=== PATIENT | female | born 1970 | race Caucasian/White ===

== ENCOUNTER 2016-09-30 16:13 | Day surgery (SDC) | payer BC, OTHER ==
[~2016-09-30 16:13] MED LIST: RINGERS SOLUTION,LACTATED 1,000 ML IV PRN
--- OUTSIDE RECORDS SUMMARY | 2016-09-30 16:16 | XMS REPORT | Continuity of Care Document ---
:1970 Author Organization [facility] ([facility]) Address [address] [place] [address] Phone [phone] Care Team Providers Name Role Phone Winston Hernandez Primary Care Provider [phone] Source Comments This disclosure is being made pursuant to the Care Everywhere program, applicable federal and state laws, and may not contain all informaitonavailable regarding this patient.[facility] ([facility]) Active Allergies and Adverse Reactions Allergen Noted Date Severity Reactions Comments Penicillin G Urticaria (Hives) Phenobarbital Urticaria (Hives) Current Medications Prescription Sig. Disp. Refills Start Date End Date Status famotidine (PEPCID) 20 Take 1 Tab by mouth 60 Tab 6 11/23/2009 Active mg tablet 2 times daily. Indications: Prevention of Stress Ulcer benazepril (LOTENSIN) Take 20 mg by mouth Active 20 mg tablet daily. traZODone (DESYREL) 50 Take 50-100 mg by Active mg tablet mouth at bedtime. traMADol (ULTRAM) 50 mg Take 50-100 mg by Active tablet mouth every 6 hours as needed. rizatriptan (MAXALT) 10 Take 10 mg by mouth Active mg tablet once when needed. May repeat in 2 hours in needed citalopram 40 mg tablet Take 40 mg by mouth Active daily. pramipexole 1 mg tablet Take 1 mg by mouth Active daily. 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 Has not had biopsy. Arthralgia 03/24/2012 Depression 03/24/2012 Migraine 03/24/2012 Environmental allergies 03/24/2012 Asthma 03/24/2012 Restless leg syndrome 03/24/2012 Nephrotic syndrome with unspecified pathological lesion in kidney 01/01/2006 Immunizations Name Dates Previously Given Next Due Influenza, unspecified 06/04/2007,07/18/2006 Social History Tobacco Use Types Packs/Day Years Used Date Never Smoker Smokeless Tobacco: Never Used Alcohol Use Drinks/Week oz/Week Comments Yes socially (less than alcoholic 2 beverages per week) Last Filed Vital Signs Vital Sign Reading Time Taken Blood Pressure 133/76 03/24/2012 9:32 AM CDT Pulse 89 03/24/2012 9:32 AM CDT Temperature 36 C (96.8 F) 03/24/2012 9:32 AM CDT Respiratory Rate 16 12/22/2006 3:31 PM CDT Height 1.702 m (5' 7") 03/24/2012 9:32 AM CDT Weight 114.216 kg (251 lb 12.8 oz) 03/24/2012 9:32 AM CDT Body Mass Index 39.43 03/24/2012 9:32 AM CDT Oxygen Saturation - - Plan of Care Health Maintenance Due Date Last Done Comments Hepatitis B Vaccine (1 of 3 - Primary 1971 Series) Tdap Vaccine 1982 MMR Vaccine 1989 Td Vaccine 1989 Pneumococcal Vaccine (1 of 3 - PCV13) 1990 Cervical Cancer Screening 2001 Mammogram 2011 Lipid Disorder Screening 07/18/2011 07/18/2006, 03/21/2006 Influenza Vaccine: Seasonal (#1) 03/04/2016 06/04/2007, 07/18/2006 Results from Last 3 Months Not on file
[2016-09-30] MEDS ORDERED: RINGERS SOLUTION,LACTATED 1,000 ML IV ONE (17:10)
[2016-09-30] MEDS ORDERED: BUPIVACAINE HCL/EPINEPHRINE 50 ML VIAL IJ ONE ×2 (17:30)
--- NOTE | 2016-09-30 18:21 | OR ---
Operative Report - Dictated Report Narrative: OPERATIVE REPORT DATE OF OPERATION: 09/30/2016 PREOPERATIVE DIAGNOSIS: Abscess of the mid back POSTOPERATIVE DIAGNOSIS: Infected/ruptured epidermal inclusion cyst with abscess of the back OPERATION: Incision and drainage/debridement of abscess of the mid back SURGEON: Corine Maddox MD ANESTHESIA: ALPESH Laird CRNA INDICATIONS FOR PROCEDURE: The patient is a 46-year-old female who developed tenderness and swelling in the mid back on 09/25/2016. The area enlarged in size. Her was able to drain some purulent material, however the area has gotten worse. FINDINGS: Infected/ruptured epidermal inclusion cyst with abscess NARRATIVE OF PROCEDURE: The patient was identified preoperatively, and prior to the administration of anesthetic, a multidisciplinary timeout was observed. With the patient in the right lateral position and after the administration of intravenous sedation, the area around the abscess was prepped with Betadine solution and isolated with 4 sterile towels. The remainder of the patient was covered with a sterile disposable drape. The area around the abscess was infiltrated with 0.5% Marcaine with epinephrine. A cruciate skin incision was made over the most fluctuant portion of the mass. A large amount of purulent material was expressed. A culture was submitted. Epidermal inclusion cyst debris was also evident. The wound was explored. There were no loculations or extensions. The wound was then irrigated with saline until clear. Visible epidermal inclusion cyst sac was debrided back to subcutaneous tissue with scissors. The area was again irrigated until clean. No additional sac material was visible. The wound appeared hemostatic. 1/2 inch iodoform gauze packing was placed. A dressing of folded 4 x 4 and large Mepilex border was applied. The dressing was additionally reinforced with Medipore tape. The operative procedure was terminated at this point. The patient tolerated the anesthetic and procedure well without complication. There was no measurable blood loss. A culture was submitted but no tissue specimen was submitted. The patient was transferred back to the ambulatory surgery area awake and in stable condition. The patient remained stable throughout a period of postoperative observation. She denied discomfort. She was able to tolerate PO intake and was up without assistance. I shared the operative findings with her. She was discharged home with instructions to keep the current dressing dry and intact. She has a prescription for Percocet 5/325 mg #20 1-2 PO Q4-6hrs prn pain. She has an office appointment for tomorrow for wound inspection and packing change. Reviewed and electronically signed
[2016-09-30] MEDS ORDERED: oxyCODONE HCL/ACETAMINOPHEN 1 TAB TABLET PO PRN (18:38)
[2016-09-30 18:58] VITALS: BP 124/66
== END 2016-09-30 16:14 | disposition home or self-care (01) ==
LOC: AMB 16:13
PROVIDERS: ATTEND Surgery
PROC: 0J970ZZ Drainage of Back Subcutaneous Tissue and Fascia, Open Approach (ICD-10-PCS; principal; 2016-09-30 16:00)
DX: L72.0 Epidermal cyst (principal); L02.212 Cutaneous abscess of back [any part, except buttock and flank]; I10 Essential (primary) hypertension; E03.9 Hypothyroidism, unspecified; Z68.41 Body mass index [BMI] 40.0-44.9, adult

== ENCOUNTER 2020-12-03 23:56 | Observation (INO) ==
[2020-12-04] MEDS ORDERED: ONDANSETRON HCL/PF 2 MG/ML VIAL IV ONE ×2 (00:23→01:28)
[2020-12-04] MEDS ORDERED: ONDANSETRON HCL/PF 2 MG/ML VIAL ONE (00:24)
[2020-12-04] MEDS ORDERED: KETOROLAC TROMETHAMINE 30 MG/ML VIAL IV ONE ×2 (00:25→07:58)
[2020-12-04] MEDS ORDERED: ALBUTEROL SULFATE 60 PUFF INHALER IH ONE (00:27)
[2020-12-04] MEDS ORDERED: ALBUTEROL SULFATE 200 PUFF INHALER IH ONE (00:35)
[2020-12-04] MEDS ORDERED: NORMAL SALINE 1,000 ML IV ONE (00:42)
--- NOTE | 2020-12-04 00:47 | ERNOTE ---
Medical Problem HPI - Narrative Date of Service: 12/04/20 - General Chief Complaint: General Assessment Time Seen by Provider: 12/04/20 00:06 Source: patient Exam Limitations: no limitations - Immun/Allergies/Home Medications Immunizations: IMMUNIZATION HX Immunizations Up to Date Yes History of Influenza Vaccine Yes Hx Pneumococcal Vaccination No Allergies/Adverse Reactions: Allergies Penicillins Allergy (Severe, Verified 12/04/20 00:12) hives, rash phenobarbital Allergy (Severe, Verified 12/04/20 00:12) hives, rash clarithromycin [From Biaxin] Allergy (Verified 12/04/20 00:12) swelling Home Medications: HOME MEDICATIONS levonorgestrel 20 mcg/24 hours (6 yrs) 52 mg intrauterine device 1 dose INTRAUTERINE ONCE 03/24/18 [Last Taken Unknown] omeprazole 40 mg capsule,delayed release 40 mg PO ONCE 03/24/18 [Last Taken Unknown] fluticasone propionate 50 mcg/actuation nasal spray,suspension 1 spray CAITLYN BID PRN #16 g 06/04/18 [Last Taken Unknown] trazodone 50 mg tablet 50 mg PO HS #90 tab 08/24/19 [Last Taken Unknown] cyclobenzaprine 10 mg tablet 10 mg PO TID PRN #30 tab 11/03/19 [Last Taken Unknown] furosemide 40 mg tablet 40 mg PO DAILY PRN #90 tab 03/21/20 [Last Taken Unknown] sertraline 50 mg tablet 50 mg PO DAILY #90 tab 03/21/20 [Last Taken Unknown] tramadol 50 mg tablet 100 mg PO BID PRN #360 tab 07/17/20 [Last Taken Unknown] alprazolam 0.25 mg tablet 0.25 mg PO BID #180 tab 09/05/20 [Last Taken Unknown] topiramate 100 mg tablet 100 mg PO BID #180 tab 09/22/20 [Last Taken Unknown] benazepril 20 mg tablet 20 mg PO DAILY #90 tab 10/06/20 [Last Taken Unknown] levothyroxine 50 mcg tablet 50 mcg PO DAILY #90 tab 10/06/20 [Last Taken Unknown] pramipexole 0.5 mg tablet 1 mg PO DAILY #180 tab 10/06/20 [Last Taken Unknown] HYDROcodone/ACETAMINOPHEN [[place] 5-325] 1 - 2 tab PO Q8H PRN 7 Days #15 tab 12/01/20 [Last Taken Unknown] Rizatriptan Benzoate [Rizatriptan] 10 mg PO Q2H PRN 12/01/20 [Last Taken Unknown] Sulfamethoxazole/Trimethoprim [Bactrim Ds] 1 tab PO BID #20 tab 12/01/20 [Last Taken Unknown] Tamsulosin HCl [Flomax] 0.4 mg PO DAILY@1800 #15 cap.sr.24h 12/01/20 [Last Taken Unknown] - History of Present History Narrative: Patient is a 50 yr old female that presents to the ED with complaint of decreased appetite, N/V, left flank pain, cough, and general malaise for the past week but gradually worsening over the last 24 hours. Patient was treated 4 days ago for renal stone and diagnosed one week ago with Covid. is also positive but is improving. Date (Duration): 12/03/20 Timing: constant Severity: moderate Modifying Factors - (Improves): Present: rest Modifying Factors - (Worsens): Present: eating Review of Systems - Review of Systems Constitutional: Present: weakness, fatigue, malaise, decreased activity level EYE: Present: no symptoms reported ENT: Present: no symptoms reported Respiratory: Present: cough Cardiology: Present: no symptoms reported Gastrointestinal/Abdominal: Present: nausea, vomiting, constipation Genitourinary: Present: other - flank pain Musculoskeletal: Present: no symptoms reported Skin: Present: no symptoms reported Neurological: Present: no symptoms reported Hematologic/Lymphatic: Present: no symptoms reported Psych: Present: no symptoms reported Medical History (Last Reviewed 12/04/20 @ 00:44 by Jo Davila MD) Chronic pain syndrome Onset Date: Unknown Heartburn Onset Date: Unknown Hypertension Onset Date: Unknown Hypothyroidism Onset Date: Unknown Insomnia Onset Date: Unknown Nephrotic syndrome Onset Date: ~2003 Obesity Onset Date: Unknown Restless legs Onset Date: Unknown Atrioventricular block Onset Date: Unknown bundle block Surgical History: Surgical History (Last Reviewed 12/04/20 @ 00:44 by Jo Davila MD) History of incision and drainage Onset Date: ~09/30/16 bagan mid back History of tonsillectomy Onset Date: Unknown Previous section Onset Date: ~1998 Family History: Family History (Last Reviewed 12/04/20 @ 00:44 by Jo Davila MD) Mother Heart disease Hypertension Brother Diabetes Father , age 70 Diabetes Myocardial infarction Social History: (Last Reviewed 12/04/20 @ 00:44 by Jo Davila MD) Social History: Marital status: number of children: 1 current occupational status: employed current occupation: Switchboard Highest level of school completed/degree received: some college, no degree Service: No Tobacco: Smoking Status: Never smoker Alcohol: alcohol intake: current Substance Use: substance use type: does not use Dietary Habits: caffeine: Yes Physical Exam - Physical Exam General Appearance: Present: wd/wn, alert, mild distress Head Exam: Present: normal inspection, no evidence of injury Eye Exam: Normal inspection: bilateral Ears, Nose, Throat: Present: normal ENT inspection Neck: Present: normal inspection Respiratory: Present: no respiratory distress, rhonchi Cardiovascular/Chest: Present: regular rate, rhythm, no murmur Gastrointestinal/Abdominal: Present: normal bowel sounds, nontender, nondistended, soft, no organomegaly Back Exam: Present: CVA tenderness (L) Extremity Exam: Present: normal inspection Neurological Exam: Present: alert, oriented, normal mood/affect, no motor/sensory deficits Skin Exam: Present: normal color, warm/dry Lymphatic Exam: Present: no adenopathy Progress - Results and Orders Patient's Lab Results:: I have reviewed the patient's lab results. - Vital Signs Patient's Vital Signs:: I have reviewed the patient's vital signs. Vital Signs: Vital Signs 12/04/20 00:06 Temperature 36.8 C Pulse Rate 114 H Respiratory Rate 20 Blood Pressure 104/61 O2 Sat by Pulse Oximetry 96 - Progress/Reassessment Chief Complaint: General Assessment Progress:: Improved - Transfer of Care Pending Results: Labs - Urinalysis is consistent with urinary tract infection. Creatinine is 1.46 and white count is 5700 with increased segs. Plan - Plan Plan: Patient is hydrated. Baseline lab is obtained. Patient had repetitive cough during exam and albuterol inhaler 5 puffs is administered. Patient states that she was not using an inhaler at home as yet. Renal colic is treated with To radol and the nausea is treated with Zofran. Patient has persistent renal colic with nausea. Patient states she is only minimally improving. Urinalysis was reevaluated and consistent with UTI. Patient has significant 7 mm stone at the left UPJ on prior study. Patient will be admitted for control of nausea, pain, hydrated, and placed on IV antibiotics for urinary tract infection. Patient will be continue with albuterol inhaler for cough associated with Covid pneumonia. Departure Clinical Impression: UTI (urinary tract infection), Renal colic, Pneumonia due to COVID-19 virus, Nausea & vomiting - Departure Disposition: Short Term Hospital Inpatient Condition: Good Referrals: Anjum Stallings DO [Primary Care Provider] -
[2020-12-04 00:54] LABS: Hemoglobin 15.4 gm/dL (12.5-16.0); Mean Cell Volume 88.9 fl (78-100); Mean Corpuscular Hemoglobin 28.5 pg (27-31); Mean Corpuscular Hgb Conc 32.1 g/dl (32-36); Mean Platelet Volume 9.5 fl (8-12.5); Neutrophil # 4.4 K/mm3 (1.3-6.0); Neutrophil % 76.3 % (42-75.0); Platelet Count 202 K/mm3 (150-450); Red Cell Distribution Width 14.1 % (11.5-14.0); White Blood Count 5.7 K/mm3 (4.0-10.5)
[2020-12-04 01:02] LABS: Albumin * 3.2 gm/dl (3.4-5.0); Anion Gap 18.4 mmol/L (6.8-13.8); BUN/Creatinine Ratio 12.3 (9.0-21.6); Bilirubin, Total 0.3 mg/dL (0.0-1.1); Ca. Corrected For Albumin 8.6 mg/dL (8.4-10.2); Calcium * 8.3 mg/dL (7.9-10.9); Carbon Dioxide 21.5 mmol/L (24-32.6); Potassium 3.9 mmol/L (3.4-4.6); Total Protein 7.4 gm/dL (6.2-8.2)
[2020-12-04 01:58] LABS: Urine Bilirubin 1 mg/dl (NEGATIVE); Urine Ketone 5 mg/dL (NEGATIVE); Urine Nitrite Negative (NEGATIVE); Urine Protein 30 mg/dL (NEGATIVE); Urine Specific Gravity >=1.030 SP.GR. (1.005-1.010); Urine Urobilinogen Normal (NORMAL)
[2020-12-04 02:14] LABS: Urine Appearance Slightly Cloudy (CLEAR); Urine Color Yellow
[2020-12-04 02:15] LABS: Urine Bacteria 1+; Urine Blood 5 /ul (NEGATIVE); Urine RBC 0-5 /hpf (0-5)
[2020-12-04] MEDS ORDERED: fentaNYL CITRATE/PF 50 MCG/ML AMPUL IV ONE (02:34)
[2020-12-04] MEDS ORDERED: ALBUTEROL SULFATE 200 PUFF INHALER IH PRN (02:39)
[2020-12-04] MEDS: ONDANSETRON HCL/PF 2 MG/ML VIAL IV SCH ×4 (03:42→20:53)
--- NOTE | 2020-12-04 08:01 | HP ---
Chief Complaint - Chief Complaint Date of Service: 12/04/20 Time of Service: 08:00 Chief Complaint: Fatigued, flank pain History of Present Illness: Maria G is a 50 yo female presenting to the [facility] ER with flank pain. She was recently diagnosed with COVID about a week ago and also recently (12/01) diagnosed with 7mm kidney stone with mild hydronephrosis. She had evidence of a UTI and was started on bactrim DS. She was suposed to follow up with urology friday or friday if symptoms persisted. She reports flank pain, nausea, and poor appetite. No fever, chills. In the ER she was given toradol and fentanyl for pain. She currently reports feeling better and has no flank pain. She does not feel like her appetite is back yet. Medical History (Last Reviewed 12/04/20 @ 03:37 by Silvia Peralta RN) Chronic pain syndrome Onset Date: Unknown Heartburn Onset Date: Unknown Hypertension Onset Date: Unknown Hypothyroidism Onset Date: Unknown Insomnia Onset Date: Unknown Nephrotic syndrome Onset Date: ~2003 Obesity Onset Date: Unknown Restless legs Onset Date: Unknown Atrioventricular block Onset Date: Unknown bundle block Surgical History: Surgical History (Last Reviewed 12/04/20 @ 03:37 by Silvia Peralta RN) History of incision and drainage Onset Date: ~09/30/16 [facility] back History of tonsillectomy Onset Date: Unknown Previous section Onset Date: ~1998 Family History: Family History (Last Reviewed 12/04/20 @ 03:37 by Silvia Peralta RN) Mother Heart disease Hypertension Brother Diabetes Father , age 70 Diabetes Myocardial infarction Social History: (Last Reviewed 12/04/20 @ 03:37 by Silvia Peralta RN) Social History: Marital status: number of children: 1 current occupational status: employed current occupation: Switchboard Highest level of school completed/degree received: some college, no degree Service: No Tobacco: Smoking Status: Never smoker Alcohol: alcohol intake: current Substance Use: substance use type: does not use Dietary Habits: caffeine: Yes Review Of Systems (GEN) - Review of Systems Generalized/Overall Review: Present: Weakness. Absent: Chills, Fever EENTM: Present: No Symptoms Reported Respiratory: Absent: Cough, Shortness of Breath Cardiac: Absent: Chest Pain, Edema, Palpitations Abdominal: Present: Nausea, Abdominal Pain Genitourinary: Absent: Burning, Frequency Neurological: Present: No Symptoms Reported Skin: Present: No Symptoms Reported Endocrine: Present: No Symptoms Reported Immunizations: IMMUNIZATION HX Immunizations Up to Date Yes History of Influenza Vaccine Yes Hx Pneumococcal Vaccination No Allergies/Adverse Reactions: Allergies Allergy/AdvReac Type Severity Reaction Status Date / Time Penicillins Allergy Severe hives, rash Verified 12/04/20 00:12 phenobarbital Allergy Severe hives, rash Verified 12/04/20 00:12 clarithromycin [From Biaxin] Allergy swelling Verified 12/04/20 00:12 Home Medications: HOME MEDICATIONS levonorgestrel 20 mcg/24 hours (6 yrs) 52 mg intrauterine device 1 dose INTRAUTERINE ONCE 03/24/18 [Last Taken Unknown] omeprazole 40 mg capsule,delayed release 40 mg PO ONCE 03/24/18 [Last Taken Unknown] fluticasone propionate 50 mcg/actuation nasal spray,suspension 1 spray CAITLYN BID PRN #16 g 06/04/18 [Last Taken Unknown] trazodone 50 mg tablet 50 mg PO HS #90 tab 08/24/19 [Last Taken Unknown] cyclobenzaprine 10 mg tablet 10 mg PO TID PRN #30 tab 11/03/19 [Last Taken Unknown] furosemide 40 mg tablet 40 mg PO DAILY PRN #90 tab 03/21/20 [Last Taken Unknown] sertraline 50 mg tablet 50 mg PO DAILY #90 tab 03/21/20 [Last Taken Unknown] tramadol 50 mg tablet 100 mg PO BID PRN #360 tab 07/17/20 [Last Taken Unknown] alprazolam 0.25 mg tablet 0.25 mg PO BID #180 tab 09/05/20 [Last Taken Unknown] topiramate 100 mg tablet 100 mg PO BID #180 tab 09/22/20 [Last Taken Unknown] benazepril 20 mg tablet 20 mg PO DAILY #90 tab 10/06/20 [Last Taken Unknown] levothyroxine 50 mcg tablet 50 mcg PO DAILY #90 tab 10/06/20 [Last Taken Unknown] pramipexole 0.5 mg tablet 1 mg PO DAILY #180 tab 10/06/20 [Last Taken Unknown] HYDROcodone/ACETAMINOPHEN [[place] 5-325] 1 - 2 tab PO Q8H PRN 7 Days #15 tab 12/01/20 [Last Taken Unknown] Rizatriptan Benzoate [Rizatriptan] 10 mg PO Q2H PRN 12/01/20 [Last Taken Unknown] Sulfamethoxazole/Trimethoprim [Bactrim Ds] 1 tab PO BID #20 tab 12/01/20 [Last Taken Unknown] Tamsulosin HCl [Flomax] 0.4 mg PO DAILY@1800 #15 cap.sr.24h 12/01/20 [Last Taken Unknown] Exam - Exam Vital Signs: Vital Signs - Last Taken Temp 36.1 C 12/04/20 03:05 Pulse 87 12/04/20 03:08 Resp 15 12/04/20 03:05 BP 105/58 12/04/20 03:05 Pulse Ox 99 12/04/20 03:05 Constitutional: Present: Alert, Oriented x3, Cooperative ENT Exam: Present: hearing grossly normal Eye Exam: bilateral eye: normal inspection Respiratory: Present: lungs clear, no respiratory distress Cardiovascular/Chest: Present: regular rate, rhythm, no murmur Peripheral Pulses: radial (R): 2+, radial (L): 2+ Abdomen: Present: Normal bowel sounds, soft, nontender, nondistended, no rebound tenderness, no hepatospenomegaly Skin Exam: Present: normal color, warm/dry, no cyanosis Diagnostic Studies: Abnormal Lab Results 12/04/20 12/04/20 12/04/20 Range/Units 00:35 00:35 01:35 Hct 48.0 H (37.0-47.0) % RDW 14.1 H (11.5-14.0) % Immature Gran % (Auto) 1.90 H (0.001-0.429) % Immature Gran # (Auto) 0.11 H (0.000-0.0310) K/mm3 Neutrophils % 76.3 H (42-75.0) % Lymphocytes % 16.1 L (20-51) % Lymphocytes # 0.92 L (1.5-3.5) k/mm3 Carbon Dioxide 21.5 L (24-32.6) mmol/L Anion Gap 18.4 H (6.8-13.8) mmol/L Creatinine 1.46 H (0.4-1.4) mg/dL Est GFR (Non-Af Amer) 40 L (60-130) mL/min Random Glucose 129 H (70-110) mg/dL Albumin 3.2 L (3.4-5.0) gm/dl Urine Protein 30 H (NEGATIVE) mg/dL Urine Blood 5 H (NEGATIVE) /ul Urine Bilirubin 1 H (NEGATIVE) mg/dl Ur Leukocyte Esterase 75 H (NEGATIVE) /ul Urine WBC 5-10 H (0-5) /hpf Ur Epithelial Cells 10-25 H (0-5) /hpf Urine Bacteria 1+ H (NONE) Laboratory Results WBC 5.7 K/mm3 (4.0-10.5) D 12/04/20 00:35 RBC 5.40 M/mm3 (4.2-5.4) 12/04/20 00:35 Hgb 15.4 gm/dL (12.5-16.0) 12/04/20 00:35 Hct 48.0 % (37.0-47.0) H 12/04/20 00:35 MCV 88.9 fl (78-100) 12/04/20 00:35 MCH 28.5 pg (27-31) 12/04/20 00:35 MCHC 32.1 g/dl (32-36) 12/04/20 00:35 RDW 14.1 % (11.5-14.0) H 12/04/20 00:35 Plt Count 202 K/mm3 (150-450) 12/04/20 00:35 MPV 9.5 fl (8-12.5) 12/04/20 00:35 Immature Gran % (Auto) 1.90 % (0.001-0.429) H 12/04/20 00:35 Immature Gran # (Auto) 0.11 K/mm3 (0.000-0.0310) H 12/04/20 00:35 Neutrophils % 76.3 % (42-75.0) H 12/04/20 00:35 Lymphocytes % 16.1 % (20-51) L 12/04/20 00:35 Monocytes % 5.2 % (0.0-9) 12/04/20 00:35 Eosinophils % 0.2 % (0.0-3.0) 12/04/20 00:35 Basophils % 0.3 % (0.0-1.0) 12/04/20 00:35 Nucleated RBC % 0.0 k/mm3 (0-1) 12/04/20 00:35 Neutrophils # 4.4 K/mm3 (1.3-6.0) 12/04/20 00:35 Lymphocytes # 0.92 k/mm3 (1.5-3.5) L 12/04/20 00:35 Monocytes # 0.3 k/mm3 (0.0-1.0) 12/04/20 00:35 Eosinophils # 0.0 k/mm3 (0.0-0.7) 12/04/20 00:35 Absolute Basophils 0.0 k/mm3 (0.0-0.1) 12/04/20 00:35 Sodium 139 mmol/L (132-142) 12/04/20 00:35 Plasma Sodium 139 mmol/L (130-142) 12/04/20 00:35 Potassium 3.9 mmol/L (3.4-4.6) 12/04/20 00:35 Chloride 103 mmol/L (97-106) 12/04/20 00:35 Carbon Dioxide 21.5 mmol/L (24-32.6) L 12/04/20 00:35 Anion Gap 18.4 mmol/L (6.8-13.8) H 12/04/20 00:35 BUN 18 mg/dL (3-23) 12/04/20 00:35 Creatinine 1.46 mg/dL (0.4-1.4) H 12/04/20 00:35 Est GFR (Non-Af Amer) 40 mL/min (60-130) L 12/04/20 00:35 BUN/Creatinine Ratio 12.3 (9.0-21.6) 12/04/20 00:35 Random Glucose 129 mg/dL (70-110) H 12/04/20 00:35 Calcium 8.3 mg/dL (7.9-10.9) 12/04/20 00:35 Calcium Adj for Albumin 8.6 mg/dL (8.4-10.2) 12/04/20 00:35 Total Bilirubin 0.3 mg/dL (0.0-1.1) 12/04/20 00:35 AST 26 U/L (0-48) 12/04/20 00:35 ALT 26 U/L (19-67) 12/04/20 00:35 Alkaline Phosphatase 71 U/L (50-170) 12/04/20 00:35 Total Protein 7.4 gm/dL (6.2-8.2) 12/04/20 00:35 Albumin 3.2 gm/dl (3.4-5.0) L 12/04/20 00:35 Urine Color Yellow 12/04/20 01:35 Urine Appearance Slightly cloudy (CLEAR) 12/04/20 01:35 Urine pH 5.0 pH (5.0-7.0) 12/04/20 01:35 Ur Specific [place] >=1.030 SP.GR. (1.005-1.010) 12/04/20 01:35 Urine Protein 30 mg/dL (NEGATIVE) H 12/04/20 01:35 Urine Glucose (UA) Negative mg/dL (NEGATIVE) 12/04/20 01:35 Urine Ketones 5 mg/dL (NEGATIVE) 12/04/20 01:35 Urine Blood 5 /ul (NEGATIVE) H 12/04/20 01:35 Urine Nitrate Negative (NEGATIVE) 12/04/20 01:35 Urine Bilirubin 1 mg/dl (NEGATIVE) H 12/04/20 01:35 Urine Urobilinogen Normal EU/dl (NORMAL) 12/04/20 01:35 Ur Leukocyte Esterase 75 /ul (NEGATIVE) H 12/04/20 01:35 Urine RBC 0-5 /hpf (0-5) 12/04/20 01:35 Urine WBC 5-10 /hpf (0-5) H 12/04/20 01:35 Ur Epithelial Cells 10-25 /hpf (0-5) H 12/04/20 01:35 Urine Bacteria 1+ (NONE) H 12/04/20 01:35 Urine Culture Comments Culture to follow 12/04/20 01:35 Assessment/Plan - Narrative Narrative: Maria G is a 50 yo female with acute kidney injury from poor oral intake and potentially obstructing kidney stone. Her pain is currently resolved so it may have passed through ureter. Will monitor and treat with IV fluids. If pain continues may need to repeat US or CT to see if there is still obstruction in place and may then need transfer to urology services. She recently had COVID although does not appear to be having respiratory symptoms. She does have significant fatigue. Will admit to observation and plan to discharge to home tomorrow if kidney function is improved and pain is doing well. - Assessment/Plan (1) Acute kidney injury Problem: Acute (2) Urolithiasis Problem: Acute (3) Hydronephrosis Problem: Acute Qualifiers: Hydronephrosis type: with ureteral calculous obstruction Qualified Code(s): N13.2 - Hydronephrosis with renal and ureteral calculous obstruction (4) COVID-19 Problem: Acute (5) Kidney stone on left side Problem: Acute
[2020-12-04] MEDS ORDERED: CYCLOBENZAPRINE HCL 10 MG TABLET PO PRN (08:04)
[2020-12-04] MEDS ORDERED: FUROSEMIDE 40 MG TABLET PO PRN (08:04)
[2020-12-04] MEDS ORDERED: FLUTICASONE PROPIONATE 120 SPRAY INHALER NS PRN (08:24)
[2020-12-04] MEDS: ENALAPRIL MALEATE 20 MG TABLET PO SCH (08:51)
[2020-12-04] MEDS: SERTRALINE HCL 50 MG TABLET PO SCH (08:51)
[2020-12-04] MEDS: PANTOPRAZOLE SODIUM 40 MG TABLET.EC PO SCH (08:51)
[2020-12-04] MEDS: LEVOTHYROXINE SODIUM 50 MCG TABLET PO SCH (08:51)
[2020-12-04] MEDS: SULFAMETHOXAZOLE/TRIMETHOPRIM 1 TAB TABLET PO SCH ×2 (08:51→20:53)
[2020-12-04] MEDS: PRAMIPEXOLE DI-HCL 0.5 MG TABLET PO SCH (08:51)
[2020-12-04] MEDS: NORMAL SALINE 1,000 ML IV PRN ×2 (08:55→19:02)
[2020-12-04] MEDS: TAMSULOSIN HCL 0.4 MG CAP.SR.24H PO SCH (17:28)
[2020-12-04] MEDS: HYDROcodone/ACETAMINOPHEN 1 EACH TABLET PO PRN (19:01)
[2020-12-04] MEDS ORDERED: traZODone HCL 50 MG TABLET PO SCH (21:00)
[2020-12-05] MEDS: NORMAL SALINE 1,000 ML IV PRN ×2 (02:36→12:26)
[2020-12-05] MEDS: ONDANSETRON HCL/PF 2 MG/ML VIAL IV SCH ×4 (04:05→14:31)
[2020-12-05] MEDS: HYDROcodone/ACETAMINOPHEN 1 EACH TABLET PO PRN ×2 (05:26→14:08)
[2020-12-05 07:08] LABS: Hematocrit 41.2 % (37.0-47.0); Hemoglobin 12.8 gm/dL (12.5-16.0); Mean Cell Volume 90.7 fl (78-100); Mean Corpuscular Hemoglobin 28.2 pg (27-31); Mean Corpuscular Hgb Conc 31.1 g/dl (32-36); Mean Platelet Volume 9.1 fl (8-12.5); Neutrophil # 3.9 K/mm3 (1.3-6.0); Neutrophil % 69.9 % (42-75.0); Platelet Count 212 K/mm3 (150-450); Red Blood Count 4.54 M/mm3 (4.2-5.4); Red Cell Distribution Width 14.6 % (11.5-14.0); White Blood Count 5.5 K/mm3 (4.0-10.5)
[2020-12-05] MEDS: PANTOPRAZOLE SODIUM 40 MG TABLET.EC PO SCH (07:13)
[2020-12-05] MEDS: LEVOTHYROXINE SODIUM 50 MCG TABLET PO SCH (07:13)
[2020-12-05 07:22] LABS: Albumin * 2.4 gm/dl (3.4-5.0); Anion Gap 13.8 mmol/L (6.8-13.8); BUN/Creatinine Ratio 10.5 (9.0-21.6); Bilirubin, Total 0.2 mg/dL (0.0-1.1); Ca. Corrected For Albumin 8.2 mg/dL (8.4-10.2); Calcium * 7.2 mg/dL (7.9-10.9); Carbon Dioxide 20.2 mmol/L (24-32.6)
[2020-12-05] MEDS: PRAMIPEXOLE DI-HCL 0.5 MG TABLET PO SCH (08:05)
[2020-12-05] MEDS: SULFAMETHOXAZOLE/TRIMETHOPRIM 1 TAB TABLET PO SCH (08:05)
[2020-12-05] MEDS: ENALAPRIL MALEATE 20 MG TABLET PO SCH (08:05)
[2020-12-05] MEDS: SERTRALINE HCL 50 MG TABLET PO SCH (08:05)
[2020-12-05] MEDS ORDERED: BENZONATATE 100 MG CAPSULE PO PRN (11:45)
[2020-12-05] MEDS: TAMSULOSIN HCL 0.4 MG CAP.SR.24H PO SCH (17:16)
--- NOTE | 2020-12-05 17:45 | DS ---
Transfer Discharge Summary - Diagnosis(s)/Problems (1) Obstructive uropathy Problem: Acute (2) Acute kidney injury Problem: Acute (3) Urolithiasis Problem: Acute (4) COVID-19 Problem: Acute - Course Description of Stay: Maribel was initially admitted for nausea and pain control from ureteral stone. Her initial creatinine was 1.4. She did not have good oral intake. She was given pain control and IV fluids. Prior to this admission she had already been diagnosed with a 7mm stone at the left UPJ with mild hydronephrosis. She attempted outpatient management but with inability to tolerate orals and pain she returned to the ER and was admitted. Initially her pain was controlled with fentanyl but then returned and was unable to control with oral pain medications. Her creatinine nuria to 2.0 from obstruction and poor oral intake. Discussed with urology who suggested transfer to [facility] if she could not be managed outpatient. Discussed with patient who does not believe she could tolerate her pain and nausea at home. Discussed with [facility] hospitalist who accepted transfer. She was also diagnosed with COVID 11/27/20 but has not had any respiratory symptoms. Her only side effect from COVID is possibly fatigue and poor appetite although hard to say how much of that is related to COVID vs obstructive stone. Procedures Performed: none - Results and Findings Results and Findings: Laboratory Results - last 24 hr 12/05/20 12/05/20 07:00 07:00 WBC 5.5 RBC 4.54 Hgb 12.8 Hct 41.2 MCV 90.7 MCH 28.2 MCHC 31.1 L RDW 14.6 H Plt Count 212 MPV 9.1 Immature Gran % (Auto) 0.90 H Immature Gran # (Auto) 0.05 H Neutrophils % 69.9 Lymphocytes % 23.8 Monocytes % 4.5 Eosinophils % 0.4 Basophils % 0.5 Nucleated RBC % 0.0 Neutrophils # 3.9 Lymphocytes # 1.32 L Monocytes # 0.3 Eosinophils # 0.0 Absolute Basophils 0.0 Sodium 139 Plasma Sodium 139 Potassium 4.0 Chloride 109 H Carbon Dioxide 20.2 L Anion Gap 13.8 BUN 22 Creatinine 2.09 H D Est GFR (Non-Af Amer) 27 L D BUN/Creatinine Ratio 10.5 Random Glucose 107 Calcium 7.2 L Calcium Adj for Albumin 8.2 L Total Bilirubin 0.2 AST 26 ALT 20 Alkaline Phosphatase 55 Total Protein 6.0 L Albumin 2.4 L - Medications Medications: Active Medications Hydrocodone Bitart/Acetaminophen (Hydrocodone/Acetaminophen 1 Each Tablet) 1 each PO Q8H PRN PRN Reason: Pain Stop: 01/03/21 08:05 Last Admin: 12/05/20 14:08 Dose: 1 each Documented by: Benzonatate (Benzonatate 100 Mg Capsule) 200 mg PO TID PRN PRN Reason: Cough Stop: 01/04/21 11:46 Last Admin: 12/05/20 12:25 Dose: 200 mg Documented by: Cyclobenzaprine HCl (Cyclobenzaprine Hcl 10 Mg Tablet) 10 mg PO TID PRN PRN Reason: muscle spasm Stop: 01/03/21 08:05 Last Admin: 12/04/20 14:25 Dose: 10 mg Documented by: Enalapril Maleate (Enalapril Maleate 20 Mg Tablet) 20 mg PO DAILY [facility] Stop: 01/03/21 09:01 Last Admin: 12/05/20 08:05 Dose: 20 mg Documented by: Sodium Chloride (Sodium Chloride 0.9%) 1,000 mls @ 100 mls/hr IV .Q10H PRN PRN Reason: HYDRATION Last Admin: 12/05/20 12:26 Dose: 100 mls/hr Documented by: Levothyroxine Sodium (Levothyroxine Sodium 50 Mcg Tablet) 50 mcg PO DAILY@0700 [facility] Stop: 01/03/21 09:01 Last Admin: 12/05/20 07:13 Dose: 50 mcg Documented by: Ondansetron HCl (Ondansetron Hcl/Pf 2 Mg/Ml Vial) 4 mg IV Q6H [facility] Stop: 01/03/21 02:46 Last Admin: 12/05/20 14:31 Dose: Not Given Documented by: Pantoprazole Sodium (Pantoprazole Sodium 40 Mg Tablet.Ec) 40 mg PO DAILY@0700 [facility] Stop: 01/03/21 09:01 Last Admin: 12/05/20 07:13 Dose: 40 mg Documented by: Pramipexole Dihydrochloride (Pramipexole Di-Hcl 0.5 Mg Tablet) 1 mg PO DAILY [facility] Stop: 01/03/21 09:01 Last Admin: 12/05/20 08:05 Dose: 1 mg Documented by: Sertraline HCl (Sertraline Hcl 50 Mg Tablet) 50 mg PO DAILY [facility] Stop: 01/03/21 09:01 Last Admin: 12/05/20 08:05 Dose: 50 mg Documented by: Tamsulosin HCl (Tamsulosin Hcl 0.4 Mg Cap.Sr.24h) 0.4 mg PO DAILY@1800 [facility] Stop: 01/03/21 18:01 Last Admin: 12/05/20 17:16 Dose: 0.4 mg Documented by: Trazodone HCl (Trazodone Hcl 50 Mg Tablet) 50 mg PO [facility] Stop: 01/03/21 21:01 Last Admin: 12/04/20 20:53 Dose: 50 mg Documented by: Trimethoprim/Sulfamethoxazole (Sulfamethoxazole/Trimethoprim 1 Tab Tablet) 1 tab PO BID [facility]; Protocol Stop: 01/03/21 09:01 Last Admin: 12/05/20 08:05 Dose: 1 tab Documented by: Discontinued Medications Albuterol Sulfate (Albuterol Sulfate 60 Puff Inhaler) 5 puff IH ONCE ONE Stop: 12/04/20 00:28 Last Admin: 12/04/20 00:50 Dose: 5 puff Documented by: Fentanyl Citrate (Fentanyl Citrate/Pf 50 Mcg/Ml Ampul) 25 mcg IV ONCE ONE Stop: 12/04/20 02:35 Last Admin: 12/04/20 02:43 Dose: 25 mcg Documented by: Sodium Chloride (Sodium Chloride 0.9%) 1,000 mls @ 500 mls/hr IV .Q2H ONE Stop: 12/04/20 02:41 Last Infusion: 12/04/20 02:49 Dose: Infused Documented by: Ketorolac Tromethamine (Ketorolac Tromethamine 30 Mg/Ml Vial) 30 mg IV ONCE ONE Stop: 12/04/20 00:26 Last Admin: 12/04/20 00:46 Dose: 30 mg Documented by: Ketorolac Tromethamine (Ketorolac Tromethamine 30 Mg/Ml Vial) 30 mg IV ONCE ONE Stop: 12/04/20 07:59 Last Admin: 12/04/20 08:50 Dose: 30 mg Documented by: Ondansetron HCl (Ondansetron Hcl/Pf 2 Mg/Ml Vial) 4 mg IV ONCE ONE Stop: 12/04/20 00:24 Last Admin: 12/04/20 00:41 Dose: 4 mg Documented by: Ondansetron HCl (Ondansetron Hcl/Pf 2 Mg/Ml Vial) 4 mg IV ONCE ONE Stop: 12/04/20 01:29 Last Admin: 12/04/20 01:33 Dose: 4 mg Documented by: - Disposition Disposition: Short Term Hospital Inpatient Condition: Fair Discharge Date: 12/05/20
[2020-12-05 18:19] VITALS: BP 124/61
== END 2020-12-05 18:10 | disposition short-term general hospital (02) ==
LOC: ER 23:56 → MS 23:56
PROVIDERS: ADMIT Family Medicine; ATTEND Family Medicine